=== PATIENT | female | born 2000 | race Two or more races ===

== ENCOUNTER 2023-02-24 10:59 | Emergency (ER) | payer MEDICAID, OTHER ==
[~2023-02-24] VITALS: Ht 175.3 cm; Wt 106.7 kg
[2023-02-24 13:18] LABS: Urine Bacteria NONE SEEN /hpf (None Seen); Urine Blood Negative /uL (Negative); Urine Clarity Clear (Clear); Urine Color Straw (Yellow); Urine Protein, UAD Negative (Negative); Urine Specific Gravity 1.017 (1.001-1.035); Urine Urobilinogen Normal (Negative); Urine WBC 1 /hpf (0 - 5)
[2023-02-24 13:36] VITALS: BP 135/81
[2023-02-24 13:37] VITALS: PULSE 85; RESP 16; O2SAT 100
[2023-02-24] MEDS ORDERED: IBUP-1455 PO (14:00)
== END 2023-02-24 14:17 | disposition home or self-care (01) ==
LOC: ER 10:59
DX: N64.4 Mastodynia (principal)
CPT/HCPCS: 81001

== ENCOUNTER 2023-10-16 05:44 | Emergency (ER) | payer OTHER, MEDICAID ==
[~2023-10-16] VITALS: Ht 175.3 cm; Wt 111.3 kg
[~2023-10-16 05:44] MED LIST: IBUP-1455 PO
[2023-10-16 05:58] VITALS: BP 131/89; RESP 16; TEMP 98.4; O2SAT 99
[2023-10-16 07:08] LABS: Basophils # (auto) 0.1 10 ^3/uL (0-0.2); Basophils % (auto) 0.5 % (0.0-2.0); Eosinophils # (auto) 0.3 10 ^3/uL (0-0.8); Eosinophils % (auto) 3.5 % (0.0-7.0); Hematocrit 38.8 % (36.0-46.0); Hemoglobin 12.8 g/dL (12.2-16.2); Lymphocytes # (auto) 2.3 10 ^3/uL (0.4-5.4); Mean Corpuscular Hemoglobin 27.2 pg (28.0-32.0); Mean Corpuscular Volume 82.6 fL (80.0-100.0); Monocytes # (auto) 0.5 10 ^3/uL (0-1.3); Monocytes % (auto) 5.3 % (0.0-12.0); Neutrophils # (auto) 6.5 10 ^3/uL (1.6-8.6); Neutrophils % (auto) 66.7 % (37.0-80.0); Nucleated Red Blood Cells % 0.1 %; Platelet Count (auto) 314 10^3/uL (140-450); Red Cell Distribution Width 14.7 % (11.8-14.3); White Blood Cell 9.8 10^3/uL (4.4-10.8)
[2023-10-16 07:14] LABS: Chloride 107 mmol/L (98-107); Potassium 4.3 mmol/L (3.5-5.1); Sodium 137 mmol/L (136-145)
[2023-10-16 07:15] LABS: Anion Gap 4 (5-15); Carbon Dioxide 26 mmol/L (20-30)
[2023-10-16 07:16] LABS: Calcium 8.9 mg/dL (8.7-10.4)
[2023-10-16 07:20] LABS: Glucose 107 mg/dL (74-106)
[2023-10-16 07:21] LABS: BUN/Creatinine Ratio 20.6 (10.0-20.0); Blood Urea Nitrogen 14 mg/dL (9-23)
[2023-10-16 07:36] VITALS: PULSE 84
[2023-10-16] MEDS ORDERED: HYDR50TA69 PO (07:43)
== END 2023-10-16 07:47 | disposition home or self-care (01) ==
LOC: ER 05:44
DX: F41.1 Generalized anxiety disorder (principal); Z79.1 Long term (current) use of non-steroidal anti-inflammatories (NSAID)
CPT/HCPCS: 36415; 80048; 84484; 85025; 93005

== ENCOUNTER 2023-11-19 16:27 | Emergency (ER) | payer MEDICAID, OTHER ==
[~2023-11-19] VITALS: Ht 177.8 cm; Wt 108.2 kg
[~2023-11-19 16:27] MED LIST changes: +HYDR50TA69 PO
[2023-11-19 17:49] VITALS: BP 122/85; PULSE 77; RESP 17; TEMP 98.6; O2SAT 98
[2023-11-19] MEDS: KETOROLAC TROMETH 60MG/2ML VIAL IM ONE (17:52)
[2023-11-19 18:07] LABS: Basophils # (auto) 0 10 ^3/uL (0-0.2); Basophils % (auto) 0.2 % (0.0-2.0); Eosinophils # (auto) 0.1 10 ^3/uL (0-0.8); Eosinophils % (auto) 0.5 % (0.0-7.0); Hemoglobin 13.6 g/dL (12.2-16.2); Lymphocytes # (auto) 1.7 10 ^3/uL (0.4-5.4); Lymphocytes % (auto) 11.7 % (10.0-50.0); Mean Corpuscular Hemoglobin 27.2 pg (28.0-32.0); Mean Corpuscular Hgb Conc. 33.9 g/dL (32.0-36.0); Mean Corpuscular Volume 80.3 fL (80.0-100.0); Monocytes # (auto) 0.7 10 ^3/uL (0-1.3); Monocytes % (auto) 4.9 % (0.0-12.0); Neutrophils # (auto) 12.1 10 ^3/uL (1.6-8.6); Neutrophils % (auto) 82.7 % (37.0-80.0); Nucleated Red Blood Cells % 0.1 %; Platelet Count (auto) 384 10^3/uL (140-450); Red Blood Cells 4.98 10^6/uL (4.0-5.20); Red Cell Distribution Width 14.8 % (11.8-14.3); White Blood Cell 14.7 10^3/uL (4.4-10.8)
[2023-11-19 18:15] LABS: Chloride 102 mmol/L (98-107); Potassium 3.6 mmol/L (3.5-5.1); Sodium 135 mmol/L (136-145)
[2023-11-19 18:16] LABS: Anion Gap 11 (5-15); Carbon Dioxide 22 mmol/L (20-31)
[2023-11-19 18:21] LABS: Blood Urea Nitrogen 10 mg/dL (9-23); Glucose 105 mg/dL (74-106)
[2023-11-19 20:46] LABS: Urine Bacteria None Seen /hpf (None Seen)
[2023-11-19 21:07] LABS: Urine Blood 3+ /uL (Negative); Urine Clarity Turbid (Clear); Urine Color Light-Brown (Yellow); Urine Mucus FEW (None Seen); Urine Protein, UAD 1+ (Negative); Urine Specific Gravity 1.015 (1.001-1.035); Urine Urobilinogen Normal (Negative); Urine WBC 157 /hpf (0 - 5); Urine pH 5.5 (5.0-9.0)
[2023-11-19] MEDS ORDERED: BACDST PO (21:46)
[2023-11-19] MEDS ORDERED: NAP500T PO (21:47)
== END 2023-11-19 21:52 | disposition home or self-care (01) ==
LOC: ER 16:27
DX: N93.9 Abnormal uterine and vaginal bleeding, unspecified (principal); R10.2 Pelvic and perineal pain; N39.0 Urinary tract infection, site not specified; Z79.899 Other long term (current) drug therapy
CPT/HCPCS: 36415; 74176; 80048; 81001; 81025; 84702; 85025; 96372; 99285; J1885